=== PATIENT | male | born 1945 | race Caucasian/White ===

== ENCOUNTER → 2017-02-09 | Outpatient (CLI) | payer MEDICARE ==
[~2017-02-09] MED LIST: ALBU18HF INH; ATOR10TA9 PO; CHLORPHENIRAMINE; ENAL10TA PO; FINA5TAB4 PO; FINASTERIDE PO; FURO20TA3 PO; HYDROCODONE; LEVO750T26 PO; OMNIPAQUE 350 MG/ML, 100ML BOTTLE ONE; POTA20TA89 PO; TAMS0.4C2 PO; TUSSIONEX; [UNRECOGNIZED DRUG - OTHER]; [UNRECOGNIZED DRUG - REMARK] EACHEYE
== END | disposition home or self-care (01) ==
LOC: CFH 15:42
PROVIDERS: ATTEND Family Medicine
DX: R91.1 Solitary pulmonary nodule (principal); E04.2 Nontoxic multinodular goiter; M47.894 Other spondylosis, thoracic region
CPT/HCPCS: 70491; 71250; 82565; Q9967

== ENCOUNTER → 2017-03-10 | Outpatient (CLI) | payer MEDICARE ==
[~2017-03-10] MED LIST changes: +LIDOCAINE 1%, 20ML ONE; -OMNIPAQUE 350 MG/ML, 100ML BOTTLE ONE; +SODIUM BICARBONATE 4.2%, 5ML ONE
== END | disposition home or self-care (01) ==
LOC: RAD 12:49
PROVIDERS: ATTEND Family Medicine
DX: E04.1 Nontoxic single thyroid nodule (principal)
CPT/HCPCS: 76942; 88172; 88173; J3490

== ENCOUNTER → 2017-09-09 | Outpatient (CLI) | payer MEDICARE ==
[~2017-09-09] MED LIST changes: -LIDOCAINE 1%, 20ML ONE; -SODIUM BICARBONATE 4.2%, 5ML ONE
== END | disposition home or self-care (01) ==
LOC: LAB 08:08
PROVIDERS: ATTEND Nurse Practitioner Family
DX: E78.2 Mixed hyperlipidemia (principal); I10 Essential (primary) hypertension
CPT/HCPCS: 36415; 80076